=== PATIENT | female | born 1975 | race Caucasian/White ===

== ENCOUNTER 2017-11-04 14:27 | Inpatient (IN) ==
[2017-11-04] MEDS ORDERED: ONDANSETRON 4 MG/2 ML VIAL IV STA ×2 (15:14→16:11)
[2017-11-04] MEDS ORDERED: SODIUM CHLORIDE 0.9% 1,000 ML IV STA (15:14)
[2017-11-04] MEDS ORDERED: ONDANSETRON 4 MG/2 ML VIAL ONE (15:48)
[2017-11-04 15:59] LABS: Basophils # 0.1 10*3/uL (0.0-0.2); Basophils % 0.9 % (0.0-0.8); Eosinophils # 0.4 10*3/uL (0.0-0.87); Eosinophils % 4.2 % (0.00-10.9); Hematocrit 39.9 VOL% (35.7-47.0); Hemoglobin 13.4 GM/DL (12.0-16.0); Immature Granulocytes % 0.8 %; Immature Granulocytes Absolute 0.08 #; Lymphocytes # 3.5 10*3/uL (1.4-4.0); Lymphocytes % 36.6 % (21.3-54.2); Mean Corpuscular HGB Conc 33.6 GM/DL (32-36); Mean Corpuscular Hemoglobin 31 PG (27-34); Mean Corpuscular Volume 91.5 FL (87-102); Monocytes # 0.4 10*3/uL (0.11-0.8); Monocytes % 4.3 % (1.7-12.7); Neutrophils # 5.1 10*3/uL (1.4-7.4); Neutrophils % 53.2 % (38.7-73.9); Platelet Count 314 T/CUMM (130-400); Red Blood Count 4.36 MC/CUMM (3.8-5.5); Red Cell Distribution Width 12.7 % (9.3-17.3); White Blood Count 9.6 T/CUMM (4-12)
[2017-11-04] MEDS ORDERED: MORPHINE 10 MG/1 ML VIAL ONE (16:01)
[2017-11-04] MEDS ORDERED: MORPHINE 2 MG/1 ML SYRINGE IV STA ×2 (16:11→18:00)
[2017-11-04 16:12] LABS: Apearance,Urine CLEAR (Clear); Bilirubin,Urine Negative (Negative); Blood, Urine Small mg/dL (Negative); Glucose,Urine (UA) >=500 mg/dL (Negative); Ketones,Urine Negative (Negative); Mucus,Urine Occasional /LPF (Occasional); Nitrite,Urine Negative (Negative); Protein,Urine Negative; RBC,Urine 1 /HPF (0-4); Squamous Epithelial Cell,Urine Occasional /HPF (0-10); Urine Color Yellow (Yellow); Urine Specific Gravity 1.013 (1.001-1.035); Urine Urobilinogen < 2.0 EU/DL (0.2-1.0); WBC,Urine <1 /HPF (0-6)
[2017-11-04 16:17] LABS: Bilirubin,Total 0.4 MG/DL (0.2-1.0); Calcium 8.9 MG/DL (8.5-10.1); Magnesium 2.2 MG/DL (1.8-2.4); Osmolality,Calculated 272.7 MOS/KG (273-304); Potassium 3.6 MMOL/L (3.5-5.1); Total Protein 7.2 G/DL (6.4-8.3)
[2017-11-04] MEDS: LACTATED RINGERS 1,000 ML IV SCH (19:45)
[2017-11-04] MEDS: MORPHINE 10 MG/1 ML VIAL IV PRN (20:40)
[2017-11-05] MEDS: MORPHINE 10 MG/1 ML VIAL IV PRN ×3 (00:32→10:18)
[2017-11-05] MEDS: LACTATED RINGERS 1,000 ML IV SCH ×2 (03:15→15:40)
[2017-11-05] MEDS: IBUPROFEN 400 MG TABLET PO PRN (06:49)
[2017-11-05 07:16] LABS: Basophils # 0.1 10*3/uL (0.0-0.2); Basophils % 1.2 % (0.0-0.8); Eosinophils # 0.3 10*3/uL (0.0-0.87); Eosinophils % 4.4 % (0.00-10.9); Hematocrit 38.8 VOL% (35.7-47.0); Hemoglobin 12.8 GM/DL (12.0-16.0); Immature Granulocytes % 1.3 %; Lymphocytes # 3.4 10*3/uL (1.4-4.0); Lymphocytes % 43.6 % (21.3-54.2); Mean Corpuscular Hemoglobin 31 PG (27-34); Mean Corpuscular Volume 93.7 FL (87-102); Mean Platelet Volume 9.8 FL (9.6-12.0); Monocytes # 0.3 10*3/uL (0.11-0.8); Monocytes % 4.2 % (1.7-12.7); Neutrophils # 3.5 10*3/uL (1.4-7.4); Neutrophils % 45.3 % (38.7-73.9); Platelet Count 300 T/CUMM (130-400); Red Blood Count 4.14 MC/CUMM (3.8-5.5); White Blood Count 7.8 T/CUMM (4-12)
[2017-11-05 07:48] LABS: Calcium 8.4 MG/DL (8.5-10.1); Osmolality,Calculated 276.7 MOS/KG (273-304)
[2017-11-05] MEDS: ONDANSETRON 4 MG/2 ML VIAL IV PRN ×2 (08:35→20:14)
[2017-11-05] MEDS: PANTOPRAZOLE 40 MG TABLET PO SCH (09:53)
[2017-11-05] MEDS: metroNIDAZOLE INJ 500 MG in PREMIX 1 EACH IV SCH ×2 (12:12→20:10)
[2017-11-05] MEDS: PIPERACILLIN/TAZOBACTAM 3,375 MG in SODIUM CHLORIDE 0.9% 100 ML IV SCH ×2 (12:12→21:54)
[2017-11-05] MEDS: HYDROmorphone 2 MG/1 ML VIAL IV PRN (21:03)
[2017-11-06] MEDS: metroNIDAZOLE INJ 500 MG in PREMIX 1 EACH IV SCH ×3 (03:30→21:19)
[2017-11-06] MEDS: PIPERACILLIN/TAZOBACTAM 3,375 MG in SODIUM CHLORIDE 0.9% 100 ML IV SCH ×3 (04:35→23:16)
[2017-11-06 05:28] LABS: Basophils # 0.1 10*3/uL (0.0-0.2); Basophils % 0.8 % (0.0-0.8); Eosinophils # 0.3 10*3/uL (0.0-0.87); Eosinophils % 4.2 % (0.00-10.9); Hematocrit 35.2 VOL% (35.7-47.0); Hemoglobin 11.7 GM/DL (12.0-16.0); Immature Granulocytes % 0.9 %; Immature Granulocytes Absolute 0.07 #; Lymphocytes # 2.2 10*3/uL (1.4-4.0); Lymphocytes % 28.2 % (21.3-54.2); Mean Corpuscular HGB Conc 33.2 GM/DL (32-36); Mean Corpuscular Hemoglobin 30 PG (27-34); Mean Corpuscular Volume 91.4 FL (87-102); Mean Platelet Volume 10.2 FL (9.6-12.0); Monocytes # 0.4 10*3/uL (0.11-0.8); Monocytes % 5.3 % (1.7-12.7); Neutrophils # 4.8 10*3/uL (1.4-7.4); Neutrophils % 60.6 % (38.7-73.9); Platelet Count 264 T/CUMM (130-400); Red Blood Count 3.85 MC/CUMM (3.8-5.5); Red Cell Distribution Width 12.7 % (9.3-17.3); White Blood Count 7.9 T/CUMM (4-12)
[2017-11-06] MEDS: HYDROmorphone 2 MG/1 ML VIAL IV PRN ×4 (05:59→21:33)
[2017-11-06] MEDS: PANTOPRAZOLE 40 MG TABLET PO SCH (09:09)
[2017-11-06] MEDS: ONDANSETRON 4 MG/2 ML VIAL IV PRN ×3 (09:22→23:45)
[2017-11-06] MEDS: LACTATED RINGERS 1,000 ML IV SCH ×2 (17:31→23:52)
[2017-11-06] MEDS: PROMETHAZINE 25 MG/1 ML VIAL IM PRN (20:46)
[2017-11-07] MEDS: LACTATED RINGERS 1,000 ML IV SCH ×3 (01:31→23:43)
[2017-11-07] MEDS: metroNIDAZOLE INJ 500 MG in PREMIX 1 EACH IV SCH ×3 (03:47→20:30)
[2017-11-07] MEDS: HYDROmorphone 2 MG/1 ML VIAL IV PRN ×4 (04:17→20:40)
[2017-11-07] MEDS: PIPERACILLIN/TAZOBACTAM 3,375 MG in SODIUM CHLORIDE 0.9% 100 ML IV SCH ×3 (06:17→23:50)
[2017-11-07] MEDS: ONDANSETRON 4 MG/2 ML VIAL IV PRN ×2 (08:38→14:54)
[2017-11-07] MEDS: PROMETHAZINE 25 MG/1 ML VIAL IM PRN ×2 (10:39→20:10)
[2017-11-07] MEDS: PANTOPRAZOLE 40 MG TABLET PO SCH (10:42)
[2017-11-08] MEDS: ONDANSETRON 4 MG/2 ML VIAL IV PRN (00:25)
[2017-11-08] MEDS: LACTATED RINGERS 1,000 ML IV SCH ×3 (01:33→18:35)
[2017-11-08] MEDS: metroNIDAZOLE INJ 500 MG in PREMIX 1 EACH IV SCH ×3 (04:42→21:13)
[2017-11-08] MEDS: PIPERACILLIN/TAZOBACTAM 3,375 MG in SODIUM CHLORIDE 0.9% 100 ML IV SCH ×3 (06:35→23:51)
[2017-11-08] MEDS: HYDROmorphone 2 MG/1 ML VIAL IV PRN ×4 (08:38→22:32)
[2017-11-08] MEDS: PANTOPRAZOLE 40 MG TABLET PO SCH (08:39)
[2017-11-08] MEDS ORDERED: BISACODYL 5 MG TABLET PO ONE (12:00)
[2017-11-08] MEDS ORDERED: POLYETHYLENE GLYCOL 3350/ELECTROLYTES 4,000 ML BOTTLE PO ONE (13:30)
[2017-11-08] MEDS: ONDANSETRON 4 MG/2 ML VIAL IV SCH ×3 (13:55→21:09)
[2017-11-08] MEDS ORDERED: MAGNESIUM CITRATE 300 ML BOTTLE PO ONE (16:58)
[2017-11-08 17:56] LABS: Calcium 8.5 MG/DL (8.5-10.1); Osmolality,Calculated 279.3 MOS/KG (273-304); Potassium 3.4 MMOL/L (3.5-5.1)
[2017-11-09] MEDS: LACTATED RINGERS 1,000 ML IV SCH ×3 (01:33→18:21)
[2017-11-09] MEDS: ONDANSETRON 4 MG/2 ML VIAL IV SCH ×3 (02:40→09:27)
[2017-11-09] MEDS: IBUPROFEN 400 MG TABLET PO PRN (02:48)
[2017-11-09] MEDS ORDERED: MAGNESIUM CITRATE 300 ML BOTTLE PO ONE (04:00)
[2017-11-09] MEDS: metroNIDAZOLE INJ 500 MG in PREMIX 1 EACH IV SCH ×3 (04:37→21:47)
[2017-11-09] MEDS: oxyCODONE/ACETAMINOPHEN 5-325 MG TABLET PO PRN (05:50)
[2017-11-09] MEDS: PIPERACILLIN/TAZOBACTAM 3,375 MG in SODIUM CHLORIDE 0.9% 100 ML IV SCH ×2 (06:35→15:55)
[2017-11-09] MEDS ORDERED: PROPOFOL 200 MG/20 ML VIAL IV ONE (12:58)
[2017-11-09] MEDS ORDERED: LIDOCAINE 2% 5 ML VIAL ONE (12:58)
[2017-11-09] MEDS: PROMETHAZINE 25 MG/1 ML VIAL IM PRN ×2 (15:39→21:47)
[2017-11-09] MEDS: HYDROmorphone 2 MG/1 ML VIAL IV PRN ×2 (15:46→21:48)
[2017-11-09] MEDS: PANTOPRAZOLE 40 MG TABLET PO SCH (16:04)
[2017-11-10] MEDS: PIPERACILLIN/TAZOBACTAM 3,375 MG in SODIUM CHLORIDE 0.9% 100 ML IV SCH ×2 (00:35→06:38)
[2017-11-10] MEDS: LACTATED RINGERS 1,000 ML IV SCH ×2 (04:53→11:40)
[2017-11-10] MEDS: metroNIDAZOLE INJ 500 MG in PREMIX 1 EACH IV SCH (04:53)
[2017-11-10] MEDS: PANTOPRAZOLE 40 MG TABLET PO SCH (08:52)
[2017-11-10] MEDS ORDERED: HYDROmorphone 2 MG/1 ML VIAL IM PRN (09:49)
[2017-11-10 11:46] LABS: Apearance,Urine CLEAR (Clear); Bilirubin,Urine Negative (Negative); Blood, Urine Negative (Negative); Glucose,Urine (UA) >=500 mg/dL (Negative); Ketones,Urine Negative (Negative); Nitrite,Urine Negative (Negative); Protein,Urine Negative; RBC,Urine <1 /HPF (0-4); Squamous Epithelial Cell,Urine Occasional /HPF (0-10); Urine Color Straw (Yellow); Urine Specific Gravity 1.005 (1.001-1.035); Urine Urobilinogen < 2.0 EU/DL (0.2-1.0); WBC,Urine <1 /HPF (0-6)
[2017-11-10] MEDS: KETOROLAC 30 MG/1 ML VIAL IV SCH ×3 (12:51→21:59)
[2017-11-10] MEDS: SODIUM CHLORIDE 0.9% 1,000 ML IV SCH ×2 (12:54→18:44)
[2017-11-10] MEDS: oxyCODONE/ACETAMINOPHEN 5-325 MG TABLET PO PRN ×2 (12:58→18:44)
[2017-11-11] MEDS: oxyCODONE/ACETAMINOPHEN 5-325 MG TABLET PO PRN (00:28)
[2017-11-11] MEDS: SODIUM CHLORIDE 0.9% 1,000 ML IV SCH (00:42)
[2017-11-11] MEDS: KETOROLAC 30 MG/1 ML VIAL IV SCH ×2 (04:33→09:17)
[2017-11-11 05:59] LABS: Basophils # 0.1 10*3/uL (0.0-0.2); Basophils % 0.6 % (0.0-0.8); Eosinophils # 0.4 10*3/uL (0.0-0.87); Eosinophils % 4.6 % (0.00-10.9); Hemoglobin 12.2 GM/DL (12.0-16.0); Immature Granulocytes Absolute 0.09 #; Lymphocytes # 3.2 10*3/uL (1.4-4.0); Lymphocytes % 34.5 % (21.3-54.2); Mean Corpuscular Hemoglobin 31 PG (27-34); Mean Corpuscular Volume 93.4 FL (87-102); Mean Platelet Volume 10.2 FL (9.6-12.0); Monocytes # 0.5 10*3/uL (0.11-0.8); Monocytes % 5.3 % (1.7-12.7); Platelet Count 273 T/CUMM (130-400); Red Blood Count 3.96 MC/CUMM (3.8-5.5); Red Cell Distribution Width 13.1 % (9.3-17.3); White Blood Count 9.3 T/CUMM (4-12)
[2017-11-11 06:25] LABS: Albumin 3.1 G/DL (3.4-5.0); Bilirubin,Total 0.5 MG/DL (0.2-1.0); Calcium 8.2 MG/DL (8.5-10.1); Osmolality,Calculated 279.1 MOS/KG (273-304); Potassium 4.7 MMOL/L (3.5-5.1); Total Protein 5.7 G/DL (6.4-8.3)
[2017-11-11] MEDS: PANTOPRAZOLE 40 MG TABLET PO SCH (08:27)
[2017-11-11 11:15] VITALS: BP 118/78
== END 2017-11-11 12:55 | disposition home or self-care (01) | DRG 392 ==
LOC: N.ED 14:27 → N.EDINP 17:15 → N.3E 19:21
PROVIDERS: ADMIT Surgery; ATTEND Surgery